=== PATIENT | female | born 1980 | race Caucasian/White ===

== ENCOUNTER 2016-12-29 15:19 | Emergency (ER) | payer MEDICAID ==
[~2016-12-29] VITALS: Ht 167.6 cm; Wt 74.8 kg
[2016-12-29 15:20] VITALS: BP 197/135; PULSE 126; RESP 26; TEMP 99.2; O2SAT 98
--- NOTE | 2016-12-29 15:35 | NUR ---
Pt presents to ED with ALIDA morrison, reports hx chf and htn. Needs medical clearance. Pt admits to using Meth last night. B/P is elevated at 141/105. Pt c/o palpitations
[2016-12-29] MEDS ORDERED: cloNIDine HCL 0.1 MG TABLET PO ONE ×3 (16:00→18:30)
--- NOTE | 2016-12-29 16:09 | NUR ---
B/P is 198/128. Pt is asymptomatic. Admin Clonidine as ordered. Pt yamileth well
--- NOTE | 2016-12-29 17:11 | NUR ---
B/P cont to be elevated at 199/123. Pt is asymptomatic. Will make MD aware.
[2016-12-29] MEDS ORDERED: hydrALAZINE HCL 20 MG/ML VIAL IVP ONE (19:15)
--- NOTE | 2016-12-29 19:20 | NUR ---
Assumed care of patient. Blood pressure 191/83. notified.
--- NOTE | 2016-12-29 19:54 | NUR ---
ER Dr. Johnson at bedside examining patient.
[2016-12-29] MEDS ORDERED: NITROGLYCERIN 1 INCH (GM) OINT. TP ONE (20:15)
[2016-12-29] MEDS ORDERED: LORazepam 2 MG/ML VIAL (FOR ER USE) IVP ONE (20:15)
--- NOTE | 2016-12-29 20:17 | NUR ---
# 22 gauge angiocath placed to right forearm. Use of asceptic technique. Blood return noted. Flushed with 10 cc of normal saline. No evidence of infiltration noted. Patient tolerated well.
--- NOTE | 2016-12-29 20:36 | NUR ---
BP 163/87. MD notified.
--- NOTE | 2016-12-29 20:40 | NUR ---
Patient refused Ativan medication, states she does not want to feel drowsy.
--- NOTE | 2016-12-29 20:48 | NUR ---
Patient has new onset of headache, refused medication at this time. Patient states pain is tolerable.
[2016-12-29 20:50] VITALS: BP 163/87; PULSE 97; RESP 16; TEMP 98.3; O2SAT 99
--- NOTE | 2016-12-29 20:50 | NUR ---
Patient escorted out of ER bay in handcuffs with officers walking next to patient. Patient is alert and oriented to person, place, and time. IV catheter removed and bleeding controlled with gauze dressing and tape placed on prior IV site.
== END 2016-12-29 20:50 ==
LOC: SED 15:19
DX: Z02.89 Encounter for other administrative examinations (principal); F15.10 Other stimulant abuse, uncomplicated; I11.0 Hypertensive heart disease with heart failure; I50.9 Heart failure, unspecified
CPT/HCPCS: 96374; 99284; J0360